=== PATIENT | female | born 1955 | race Caucasian/White ===

== ENCOUNTER 2019-09-27 10:01 | Emergency (ER) | payer BC, MEDICARE ==
[2019-09-27] MEDS ORDERED: DIPHENHYDRAMINE HCL 25 MG CAPSULE PO ONE (10:38)
[2019-09-27] MEDS ORDERED: METHYLPREDNISOLONE PF 125MG/VIAL IM ONE (10:38)
--- NOTE | 2019-09-27 10:38 | Emergency Department Record ---
History of Present Illness - General Chief complaint: Facial Swelling Stated complaint: LT SIDE FACE SWOLLEN, WELTS ON RT HAND Time Seen by Provider: 09/27/19 10:28 Source: Patient Mode of Arrival: Ambulatory - History of Present Illness Initial Comments: Patient awakened at 0500 with ichy hands, right cheek and right eyelid. She has no vision changes or drainage. Two more lesions ave appeared on her back since she arrived here. She had this once before and it was an allergic reaction, but she doesn't know what could have caused this this time. She denies shortness of breath or dysphagia. MD Complaint: Allergic reaction (itchy over hands, arm, back), Facial swelling (right cheek and eyelid) Onset/Timin -: Hour(s) Exposure: Unknown Symptoms: Itching, Facial swelling, Other - Related Data Home Medications Medication Instructions Recorded Confirmed Last Taken Aspirin [Aspir-Low] 81 mg PO DAILY 09/27/19 09/27/19 09/26/19 Lubiprostone [Amitiza] 24 mcg PO BID 09/27/19 09/27/19 09/26/19 Metformin HCl [Metformin HCl ER] 500 mg PO BID 09/27/19 09/27/19 09/26/19 Metoprolol Tartrate [Lopressor] 25 mg PO Q12H 09/27/19 09/27/19 09/26/19 Omeprazole 40 mg PO BID 09/27/19 09/27/19 09/26/19 Oxycodone HCl/Acetaminophen 1 tab PO Q6H PRN 09/27/19 09/27/19 09/26/19 [Percocet 10mg/325mg] Simvastatin [Zocor] 20 mg PO QHS 09/27/19 09/27/19 09/26/19 Trazodone HCl 100 mg PO QHS 09/27/19 09/27/19 09/26/19 Previous Rx's Medication Instructions Recorded Prednisone [Prednisone 20Mg] 20 mg PO DAILY #20 tab 09/27/19 Allergies Allergy/AdvReac Type Severity Reaction Status Date / Time marijuana Allergy HYPERSENSIT Verified 09/27/19 10:19 IVITY Travel Screening - Travel/Exposure Within Last 30 Days Have you traveled within the last 30 days?: No - Travel/Exposure Within Last Year Have you traveled outside the [place] in the last year?: No - Additonal Travel Details Have you been exposed to anyone with a communicable illness?: No - Travel Symptoms Symptom Screening: None Review of Systems Reviewed: No additional complaints except as noted below Constitutional: Reports: As per HPI. Denies: Chills, Fever, Malaise, Night sweats, Weakness, Weight change Eyes: Reports: As per HPI. Denies: Eye discharge, Eye pain, Photophobia, Vision change ENT: Reports: As per HPI. Denies: Congestion, Dental pain, Ear pain, Epistaxis, Hearing loss, Throat pain Respiratory: Reports: As per HPI. Denies: Cough, Dyspnea, Hemoptysis, Stridor, Wheezes Cardiovascular: Reports: As per HPI. Denies: Arrhythmia, Chest pain, Dyspnea on exertion, Edema, Murmurs, Orthopnea, Palpitations, Paroxysmal nocturnal dyspnea, Rheumatic Fever, Syncope Endocrine: Reports: As per HPI. Denies: Fatigue, Heat or cold intolerance, Polydipsia, Polyuria Gastrointestinal: Reports: As per HPI. Denies: Abdominal pain, Constipation, Diarrhea, Hematemesis, Hematochezia, Melena, Nausea, Vomiting Genitourinary: Reports: As per HPI. Denies: Abnormal menses, Discharge, Dyspareunia, Dysuria, Frequency, Hematuria, Incontinence, Retention, Urgency Musculoskeletal: Reports: As per HPI. Denies: Arthralgia, Back pain, Gout, Joint swelling, Myalgia, Neck pain Skin: Reports: As per HPI. Denies: Bruising, Change in color, Change in hair/nails, Lesions, Pruritus, Rash Neurological: Reports: As per HPI. Denies: Abnormal gait, Confusion, Headache, Numbness, Paresthesias, Seizure, Tingling, Tremors, Vertigo, Weakness Psychiatric: Reports: As per HPI. Denies: Anxiety, Auditory hallucinations, Depression, Homicidal thoughts, Suicidal thoughts, Visual hallucinations Hematological/Lymphatic: Reports: As per HPI. Denies: Anemia, Blood Clots, Easy bleeding, Easy bruising, Swollen glands Past Medical History - SOCIAL HISTORY Smoking Status: Never smoker Alcohol Use: None Drug Use: None - RESPIRATORY Hx Respiratory Disorders: No - CARDIOVASCULAR Hx Cardio Disorders: Yes Hx Hypertension: Yes - NEURO Hx Neuro Disorders: No - GI Hx GI Disorders: Yes Hx Abdominal Pain: Yes Hx Reflux: Yes Comment:: slow disgestion - Hx Genitourinary Disorders: Yes Hx Renal Disease: Yes - ENDOCRINE Hx Endocrine Disorders: Yes Hx Diabetes: Yes Hx Thyroid Disease: No - MUSCULOSKELETAL Hx Musculoskeletal Disorders: No - PSYCH Hx Psych Problems: No - HEMATOLOGY/ONCOLOGY Hx Hematology/Oncology Disorders: No Family Medical History Any Significant Family History?: No Physical Exam - General General Appearance: Alert, Oriented x3, Cooperative, Mild distress (scratching her rash) - Head Head exam: Normal inspection - Eye Eye exam: Normal appearance, PERRL, EOMI, Periorbital swelling (upper eyelid with hive like swelling partially closing upper eyelid, no drainage). negative: Conjunctival injection, Nystagmus Pupils: Normal accommodation - ENT ENT exam: Normal exam, Mucous membranes moist, Normal external ear exam, Normal orophraynx, TM's normal bilaterally Ear exam: Normal external inspection. negative: External canal tenderness Nasal Exam: Normal inspection. negative: Discharge, Sinus tenderness Mouth exam: Normal external inspection, Tongue normal Teeth exam: Normal inspection, Other (chronic appearing well-localized tiny abscess over lingual aspect of right lower premolar #28. Upper dentures noted, no molars present.). negative: Dental caries Throat exam: Normal inspection. negative: Tonsillar erythema, Tonsillar exudate - Neck Neck exam: Normal inspection, Full ROM. negative: Lymphadenopathy, Meningismus, Tenderness - Respiratory Respiratory exam: Normal lung sounds bilaterally. negative: Respiratory distress - Cardiovascular Cardiovascular Exam: Regular rate, Normal rhythm, Normal heart sounds - GI/Abdominal GI/Abdominal exam: Soft, Normal bowel sounds. negative: Tenderness - Rectal Rectal exam: Deferred - exam: Deferred - Extremities Extremities exam: Normal inspection, Full ROM, Normal capillary refill. negative: Calf tenderness, Pedal edema, Tenderness - Back Back exam: Reports: Normal inspection, Full ROM. Denies: CVA tenderness (R), CVA tenderness (L), Muscle spasm, Rash noted, Tenderness - Neurological Neurological exam: Alert, CN II-XII intact, Normal gait, Oriented X3, Reflexes normal - Psychiatric Psychiatric exam: Normal affect, Normal mood - Skin Skin exam: Dry, Intact, Normal color, Rash (hive like rash to dorasl hands ,fingers, back, right cheek and right orbit. Globe intact and not involved.), Warm Course Vital Signs 09/27/19 10:07 Temperature 98.1 F Pulse Rate 78 Respiratory 16 Rate Blood Pressure 163/91 Pulse Ox 96 Medical Decision Making - Management Options MDM Management: No Additional Work-up Planned Disposition Disposition: Discharge Clinical Impression: Allergic reaction Qualifiers: Encounter type: initial encounter Qualified Code(s): T78.40XA - Allergy, unspecified, initial encounter Disposition: Home, Self-Care Condition: (1) Good Instructions: Allergies (ED) Additional Instructions: Take prednisone taper as directed until gone: 3 pills daily for 3 days, 2 pills daily for 3 days. 1 pill daily for 3 days, then 1/2 pill daily for 4 days and stop. Bernadryl 50 mg every 6-8 hours until rash resolved. May cause drowsiness. PCP follow up for allergic reaction as needed. Dental follow up at health department or local dentist for tooth abscess and general care. Prescriptions: Prednisone [Prednisone 20Mg] 20 mg PO DAILY #20 tab Quality - Quality Measures Quality Measures: N/A - Blood Pressure Screening Does Patient Have Any of the Following: No Blood Pressure Classification: Hypertensive Reading Systolic Measurement: 163 Diastolic Measurement: 91 Screening for High Blood Pressure: Patient Exclusion, Hx of HTN [[id number]]
== END 2019-09-27 11:10 | disposition home or self-care (01) ==
LOC: ER 10:01
DX: L50.0 Allergic urticaria (principal); R20.0 Anesthesia of skin; I10 Essential (primary) hypertension; E11.9 Type 2 diabetes mellitus without complications
CPT/HCPCS: 96372; 99284; J2930